=== PATIENT | male | born 1950 | race Caucasian/White ===

== ENCOUNTER 2017-07-11 14:58 | Inpatient (IN) | payer MEDICARE, MEDICAID ==
[~2017-07-11] VITALS: Ht 182.9 cm; Wt 99.0 kg
[~2017-07-11 14:58] MED LIST: FUR20T PO; LEVO500T21 PO; MORP30TA39 PO; POTA20TA53 PO
[2017-07-11] MEDS ORDERED: SODIUM CHLORIDE 0.9% 1,000 ML IV ONE (15:13)
[2017-07-11] MEDS ORDERED: ASPirin 81 mg TAB PO ONE (15:15)
[2017-07-11 16:03] LABS: Basophils # (auto) 0.1 uL; Eosinophils # (auto) 0.3 uL; Eosinophils % (auto) 2.7 % (0.0-7.0); Hematocrit 45.6 % (41.0-53.0); Hemoglobin 15.3 g/dL (13.5-17.5); Lymphocytes # (auto) 1.2 uL; Lymphocytes % (auto) 11.1 % (10.0-50.0); Mean Corpuscular Hemoglobin 32.3 pg (28.0-32.0); Mean Corpuscular Hgb Conc. 33.5 g/dL (32.0-36.0); Mean Corpuscular Volume 96.3 fL (80.0-100.0); Mean Platelet Volume 7.2 fL (6.9-10.8); Monocytes # (auto) 0.9 uL; Neutrophils # (auto) 8.7 uL; Neutrophils % (auto) 77.2 % (37.0-80.0); Nucleated Red Blood Cells % 0.1 %; Platelet Count (auto) 273 10^3/uL (140-450); White Blood Cell 11.3 10^3/uL (4.4-10.8)
[2017-07-11 16:19] LABS: INR 0.95 (0.9-1.15); Partial Thromboplastin Time 30.1 sec (22.64-33.71); Prothrombin Time 10.4 sec (9.37-12.3)
[2017-07-11 16:54] LABS: Albumin 3.1 g/dL (3.4-5.0); Alkaline Phosphatase 81 U/L (45-117); Anion Gap 10 (5-15); Aspartate Aminotransferase 17 U/L (15-37); BUN/Creatinine Ratio 14.4; Bilirubin, Total 0.3 mg/dL (0.2-1.0); Blood Urea Nitrogen 18 mg/dL (7-18); Carbon Dioxide 27 mmol/L (21-32); Chloride 102 mmol/L (98-107); GFR African American 74 mL/min; GFR Non-African American 61 mL/min; Glucose 162 mg/dL (74-106); Magnesium 2.3 mg/dL (1.6-2.6); Potassium 3.7 mmol/L (3.5-5.1); Sodium 139 mmol/L (136-145); Total Protein 6.5 g/dL (6.4-8.2)
[2017-07-11] MEDS ORDERED: IOHEXOL 350 MG/ML 100ML IJ ONE (17:40)
[2017-07-11] MEDS ORDERED: MORPHINE SULFATE 10 MG/ML INJ 1ML SDV IV PRN (18:15)
[2017-07-11] MEDS ORDERED: ONDANSETRON HCL 4 MG/2 ML VIAL IV PRN (18:15)
[2017-07-11] MEDS ORDERED: NITROGLYCERIN 0.4 MG SL TAB SL PRN (18:15)
[2017-07-11] MEDS: METOPROLOL TARTRATE 25 MG TAB PO SCH (22:00)
[2017-07-11 23:18] VITALS: BP 115/74
[2017-07-12 04:38] VITALS: BP 118/66
[2017-07-12 06:53] LABS: Basophils # (auto) 0.1 uL; Basophils % (auto) 1.1 % (0.0-2.0); Eosinophils # (auto) 0.5 uL; Eosinophils % (auto) 4.6 % (0.0-7.0); Hematocrit 42.9 % (41.0-53.0); Hemoglobin 14.5 g/dL (13.5-17.5); Lymphocytes # (auto) 1.5 uL; Lymphocytes % (auto) 14.5 % (10.0-50.0); Mean Corpuscular Hemoglobin 32.6 pg (28.0-32.0); Mean Corpuscular Hgb Conc. 33.8 g/dL (32.0-36.0); Mean Corpuscular Volume 96.6 fL (80.0-100.0); Mean Platelet Volume 7.3 fL (6.9-10.8); Monocytes % (auto) 9.9 % (0.0-12.0); Neutrophils # (auto) 7.2 uL; Neutrophils % (auto) 69.9 % (37.0-80.0); Nucleated Red Blood Cells % 0.2 %; Platelet Count (auto) 265 10^3/uL (140-450); Red Cell Distribution Width 14.3 % (11.8-14.3); White Blood Cell 10.2 10^3/uL (4.4-10.8)
[2017-07-12 08:07] LABS: Anion Gap 8 (5-15); BUN/Creatinine Ratio 15.7; Blood Urea Nitrogen 17 mg/dL (7-18); Calcium 7.8 mg/dL (8.5-10.1); Carbon Dioxide 26 mmol/L (21-32); Chloride 108 mmol/L (98-107); GFR African American 87 mL/min; GFR Non-African American 72 mL/min; Glucose 106 mg/dL (74-106); Magnesium 2.4 mg/dL (1.6-2.6); Potassium 3.7 mmol/L (3.5-5.1); Sodium 142 mmol/L (136-145)
[2017-07-12 09:00] VITALS: BP 142/99
[2017-07-12] MEDS ORDERED: LEVOFLOXACIN 500 MG TAB PO SCH (10:00)
[2017-07-12] MEDS ORDERED: POTASSIUM CHL 20 Meq TABLET PO SCH (10:00)
[2017-07-12] MEDS ORDERED: MORPHINE SULF 30 mg ER tab PO SCH (10:00)
[2017-07-12] MEDS ORDERED: FUROSEMIDE 20 MG TAB PO SCH (10:00)
[2017-07-12] MEDS: METOPROLOL TARTRATE 25 MG TAB PO SCH (10:31)
== END 2017-07-12 16:00 | disposition left against medical advice (07) | DRG 281 ==
LOC: EDBD 14:58 → ER 15:02 → TELE 15:03 → TELE-WESTW 20:11
PROVIDERS: ADMIT Nurse Practitioner Acute Care; ATTEND Nurse Practitioner Acute Care
DX: I47.1 Supraventricular tachycardia (principal); I21.9 Acute myocardial infarction, unspecified; E44.1 Mild protein-calorie malnutrition; I11.0 Hypertensive heart disease with heart failure; I50.32 Chronic diastolic (congestive) heart failure; I71.2 Thoracic aortic aneurysm, without rupture; I25.10 Atherosclerotic heart disease of native coronary artery without angina pectoris; E66.9 Obesity, unspecified; F17.210 Nicotine dependence, cigarettes, uncomplicated; G89.4 Chronic pain syndrome; I71.4 Abdominal aortic aneurysm, without rupture; I87.2 Venous insufficiency (chronic) (peripheral); Z86.79 Personal history of other diseases of the circulatory system; Z98.49 Cataract extraction status, unspecified eye; Z82.49 Family history of ischemic heart disease and other diseases of the circulatory system; Z80.9 Family history of malignant neoplasm, unspecified; Z68.29 Body mass index [BMI] 29.0-29.9, adult
CPT/HCPCS: 36415; 71020; 71275; 80048; 80053; 83735; 84100; 84443; 84484; 85025; 85379; 85610; 85730; 87077; 87081; 87186; 87205; 93005; 93970; 94761; 96360